=== PATIENT | female | born 1960 | race Caucasian/White ===

== ENCOUNTER → 2020-08-02 09:33 | Outpatient (CLI) | payer BC, SELFPAY ==
--- NOTE | 2020-08-02 09:33 | MM_ITS ---
PROCEDURE: MM DIG SCREENING MAMM BI W/CAD Digital Breast Tomosynthesis Included CLINICAL INDICATION: screening There has been a previous lumpectomy right breast for malignancy followed by radiation therapy. There is a history of breast cancer patient's mother diagnosed at age 43 COMPARISON: MG DMSB DIGITAL MAMM-SCREEN BILATERAL from 12/09/2010 MG DMDXUAVL DIG MAMM-DX UNI ADD VIEWS-LT from 12/23/2010 MG WI MAMMO, DIGITAL SCREENING (B) from 06/02/2016 TECHNIQUE: Standard CC and MLO images and 3D Tomosynthesis was obtained. R2 CAD reviewed. FINDINGS: Prominent postlumpectomy scarring is seen upper central portion right breast. There are surgical clips noted at the lumpectomy site and in addition there are surgical clips in the right axilla from likely axillary node dissection. There is no new or suspicious lesion in either breast and no suspicious microcalcifications. IMPRESSION: Stable exam with prominent postlumpectomy scarring right breast BI-RAD Category: 2 Benign Finding(s) FOLLOW-UP: 1YR 1 Year Follow-up (A letter has been sent to the patient regarding results of the study.) Dictated by: Dr. Craig Walter MD 08/13/2020 18:05 Dr. Craig Walter MD in [place] 08/13/2020 18:05
== END ==
PROVIDERS: PCP Emergency Medicine; Visit Provider Emergency Medicine
DX: Z12.31 Encounter for screening mammogram for malignant neoplasm of breast (principal)
CPT/HCPCS: 77063; 77067

== ENCOUNTER → 2023-07-13 15:43 | Outpatient (CLI) | payer BC, SELFPAY ==
--- NOTE | 2023-07-13 15:50 | MM_ITS ---
PROCEDURE INFORMATION: Exam: MG Bilateral Screening 3D Mammography Exam date and time: 07/13/2023 3:41 PM Age: 63 years old Clinical indication: Screening examination. History of right breast cancer TECHNIQUE: Imaging protocol: Bilateral Screening tomosynthesis and 2D mammography including computer-aided detection (CAD) when performed. COMPARISON: 1. MG MM DIG SCREENING MAMM BI W/CAD 08/02/2020 9:47 AM 2. MG VT MAMMO, DIGITAL SCREENING (B) 06/02/2016 9:20 AM FINDINGS: MAMMOGRAPHY: Breast composition: There are scattered areas of fibroglandular density. Mass: None. Architectural distortion: Stable post operative architectural distortion in the right upper breast with overlying skin retraction due to prior lumpectomy for carcinoma. Calcifications: No suspicious calcifications. Asymmetric density: None. Skin thickening: None. Axillary adenopathy: None. IMPRESSION: No mammographic evidence of malignancy. Annual screening is recommended unless otherwise clinically indicated. ASSESSMENT: BI-RADS Category 2: Benign
== END ==
PROVIDERS: PCP Internal Medicine; Visit Provider Internal Medicine
DX: Z12.31 Encounter for screening mammogram for malignant neoplasm of breast (principal)
CPT/HCPCS: 77063; 77067

== ENCOUNTER 2024-05-09 20:03 | Emergency (ER) | payer BC, SELFPAY ==
[2024-05-09 20:03] VITALS: BP 177/92; PULSE 110; RESP 20; TEMP 36.4; O2SAT 96; BMI 35.2
--- NOTE | 2024-05-09 20:10 | ED_ITS ---
<Statement entered by Parag Rubio MD - 05/09/24 22:18> I was consulted by the SALVADOR, and we discussed the complexity of the problems being addressed. I approved the treatment and management plan for this patient's care in the emergency department, thus performing a substantive portion of the medical decision making. Parag Rubio MD, GIORGI, FACEP Discharge Plan Disposition Patient Disposition: Home, Self-Care Condition: Fair Prescriptions Prescriptions: No Action risperidone [Risperdal] 1 mg tablet 1 mg PO BID Qty: 60 0RF Referrals Follow up/Referrals: Gerald Trimble APRN [Primary Care Provider] - See instructions Activity Restrictions/Add. Instructions Additional Instructions/Restrictions: Ice face for the next 24 hours. May take Tylenol and ibuprofen for pain and swelling. Return to the ED for any further problems or concerns. Clinical Impressions Clinical Impression: Abrasion of face Instructions Patient Instructions: How to Prevent Falls Print Language Print Language: Khmer Discharge ED Provider: Parag Rubio General Adult HPI General Chief complaint: Fall Stated complaint: fall Time Seen by Provider: 05/09/24 20:06 History of Present Illness HPI narrative: This is a 64-year-old female who was playing with a ball and fell face first onto the concrete. She complains of only pain in her face. She is not on blood thinners. She has no other complaints of pain including no neck pain. No other pain. She has no extremity pain no lower body pain no chest pain or shortness of breath no other injuries. Related Data Previous Rx's ?Medication ?Instructions ?Recorded risperidone 1 mg tablet (Risperdal) 1 mg PO BID #60 tabs 06/24/18 Allergies Allergy/AdvReac Type Severity Reaction Status Date / Time Penicillins Allergy Mild rash Verified 06/12/18 13:38 Sulfa (Sulfonamide AdvReac Mild rash Verified 06/12/18 13:38 Antibiotics) Ampicillin Allergy Mild rash Uncoded 06/12/18 13:38 Codeine Allergy Mild rash Uncoded 06/12/18 13:38 Tetracycline Allergy Mild rash Uncoded 06/12/18 13:38 [facility] Disclaimer: The information contained in this section may have been updated after the patient was seen, as this information can be updated by other users. Social History Smoking Status: Unknown if ever smoked alcohol intake: never substance use type: denies use current occupational status: disabled (She has been getting SSI since she was 17 years old. It is suspended right now related to change of address and they did not know where to send her stuff when she left [facility].) Travel in the last 8 weeks: None number of children: 2 Other Medical History Have you received the Flu Vaccine for this season: No Have you received the Pneumonia Vaccine: No ROS Obtained: Yes Systems reviewed as appropriate & no additional complaints except as documented Constitutional Constitutional: Reports as per HPI Physical Exam General General appearance: alert Head Head exam: normocephalic and other (Facial abrasions on forehead and cheeks, nasal abrasion) Eye Eye exam: Present normal appearance, PERRL and EOMI ENT ENT exam: Present normal exam, normal oropharynx and mucous membranes moist Neck Neck exam: Present normal inspection, full ROM and trachea midline Chest Chest inspection: Present normal inspection Respiratory Respiratory exam: Present normal lung sounds bilaterally Cardiovascular Cardiovascular exam: Present regular rate, normal rhythm, normal heart sounds, +S1 and +S2 Extremities Exam Extremities exam: Present normal inspection, full ROM and normal capillary refill Back Exam Back exam: Present normal inspection Neurological Exam Neurological exam: Present alert and oriented X3 Skin Skin exam: Present warm and other (Abrasions to face and nose) Medical Decision Making Medical Records Screening: Per USPSTF and CDC recommendations, given the prevalence of disease in our region, it is our hospital?s policy to screen for HIV and viral Hepatitis for all patients aged 18 and over and those with ongoing risk factors. Jc Inquiry Pt receiving controlled substance: No Jc was queried for this patient: No Vital Signs: 05/09/24 20:03 05/09/24 21:19 Temperature 97.5 F L 98.3 F Temperature Source Oral Oral Pulse Rate 86 Pulse Rate [Right Brachial] 110 H Respiratory Rate 20 16 Blood Pressure 150/87 H Blood Pressure [Right Arm] 177/92 H Blood Pressure Mean [Right Arm] 120 02 Sat by Pulse Oximetry 96 Oxygen Delivery Method Room Air Room Air Orders (Tests/Meds): ORDERS Category Date Time Status CT facial bones wo con Stat Cat Scan 05/09/24 20:10 Completed Medical Decision Narrative: Insert review patient is a [id number] female presenting to the emergency department for evaluation of facial abrasion after a trip and fall. patient is hemodynamically stable and nontoxic-appearing upon arrival, afebrile. Differential diagnosis includes facial abrasions versus facial fractures. Workup will be conducted with CT of facial bones to rule out fractures. Initial review of the CT scan shows nothing acute. We are still awaiting the formal review. Formal read shows nothing acute. Patient's been updated and is safe for discharge home. She has been instructed to ice face. Critical Care Critical Care Time Critical Care Time: No
--- NOTE | 2024-05-09 20:10 | CT_ITS ---
PROCEDURE INFORMATION: Exam: CT Maxillofacial Without Contrast Exam date and time: 05/09/2024 8:22 PM Age: 64 years old Clinical indication: Injury or trauma; Fall; Blunt trauma (contusions or hematomas); Nose TECHNIQUE: Imaging protocol: Computed tomography of the face without contrast. Radiation optimization: All CT scans at this facility use at least one of these dose optimization techniques: automated exposure control; mA and/or kV adjustment per patient size (includes targeted exams where dose is matched to clinical indication); or iterative reconstruction. COMPARISON: No relevant prior studies available. FINDINGS: Orbital cavities: Orbits are normal. Globes are unremarkable. Paranasal sinuses: No air-fluid levels. Bones: Degenerative changes of the TMJs. No fracture or dislocation. Soft tissues: Unremarkable. IMPRESSION: No acute findings.
[2024-05-09 21:19] VITALS: BP 150/87; PULSE 86; RESP 16; TEMP 36.8; O2SAT 98
--- NOTE | 2024-05-09 21:23 | PC.NURSE ---
Called [facility] and they stated they would send someone for transport
== END 2024-05-09 21:35 | disposition home or self-care (01) ==
PROVIDERS: Emergency Provider Student in an Organized Health Care Education/Training Program; PCP Nurse Practitioner Acute Care
DX: S00.81XA Abrasion of other part of head, initial encounter (principal); W19.XXXA Unspecified fall, initial encounter
CPT/HCPCS: 70486; 99284

== ENCOUNTER 2025-05-29 16:44 | Emergency (ER) | payer OTHER, SELFPAY ==
[2025-05-29] MEDS: EPINEPHrine 0.1 MG/ML 10ML SYRINGE (CRASH CART) 1 MG IV ×6 (16:42→16:56)
[2025-05-29] MEDS: AMIODARONE HCL 150MG/3ML VIAL 300 MG IV (16:44)
[2025-05-29] MEDS: CALCIUM CHLORIDE 1GM/10ML SYRINGE (CRASH CART) 2 GM IVP (16:53)
[2025-05-29] MEDS: SODIUM BICARB 8.4% 50ML SYRINGE (CRASH CART) 50 MEQ IV (16:54)
--- NOTE | 2025-05-29 17:01 | PC.NURSE ---
Supriya Brody called from the [employer] public [employer] stating the pt is a guardian of the state. Alexandria Camilo is her guardian but is not available so we are instructed to call the monotype operator number at [phone] about the pts status.
[2025-05-29 17:02] LABS: Lactate Venous 18.6 mmol/L (0.4-2.0); VBG HCO3 9.6 mmol/L (23-30); VBG PCO2 50.7 mmol/L (35-51); VBG PH 6.90 mmol/L (7.31-7.41); VBG PO2 67.5 mmol/L (28-40)
--- NOTE | 2025-05-29 17:09 | HMH.EDGENADL ---
Discharge Plan Disposition Patient Disposition: Clinical Impressions Clinical Impression: Acute hypoxemic respiratory failure, Cardiac arrest, Acute hyperkalemia, Acidosis, lactic Discharge ED Provider: Sonia Dudley Adult HPI General Stated complaint: CODE BLUE Time Seen by Provider: 05/29/25 16:48 History of Present Illness HPI narrative: Patient is a 65-year-old female with no significant past medical history who presented to the emergency department from [facility] as a CODE BLUE. Per EMS, patient's last known normal was an hour prior to arrival. 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 They are unsure the length of. That she was on the ground patient did not have a witnessed fall. On arrival by EMS, patient was pulseless. Compressions were initiated. Patient was found to be in V-fib x 2 and patient was shocked twice. Patient was given 1 dose of epinephrine and route. IO was placed and an LMA was placed. On arrival, patient was unresponsive ACLS protocol was initiated. Related Data Previous Rx's ?Medication ?Instructions ?Recorded risperidone 1 mg tablet (Risperdal) 1 mg PO BID #60 tabs 06/24/18 Allergies Allergy/AdvReac Type Severity Reaction Status Date / Time Penicillins Allergy Mild rash Verified 06/12/18 13:38 Sulfa (Sulfonamide AdvReac Mild rash Verified 06/12/18 13:38 Antibiotics) Ampicillin Allergy Mild rash Uncoded 06/12/18 13:38 Codeine Allergy Mild rash Uncoded 06/12/18 13:38 Tetracycline Allergy Mild rash Uncoded 06/12/18 13:38 [facility] Disclaimer: The information contained in this section may have been updated after the patient was seen, as this information can be updated by other users. Social History (Updated 05/09/24 @ 21:43 by Maryanne Ferguson (ED), TANNERY GUMMER) Smoking Status: Unknown if ever smoked alcohol intake: never substance use type: denies use current occupational status: disabled (She has been getting SSI since she was 17 years old. It is suspended right now related to change of address and they did not know where to send her stuff when she left [facility].) Travel in the last 8 weeks?: None number of children: 2 Have you lived/traveled outside US in past 30 days?: No Contact w/someone who lives/traveled outside US past 30 days?: No Exposure to someone with infectious disease in past 14 days?: No Do you have a fever (greater than 100.4 F or 38 C)?: No Have you tested positive for COVID-19?: No Exposed to someone with COVID-19 in past 14 days?: No Do you have a sore throat?: No Do you have a cough?: No Do you have any weakness?: No Do you have any diarrhea?: No Are you experiencing any unusual bleeding?: No Do you have any muscle aches/pain?: No Do you have any abdominal pain?: No Are you experiencing loss of taste or smell?: No Other Medical History Have you received the Flu Vaccine for this season: No Have you received the Pneumonia Vaccine: No ROS Obtained: Yes unobtainable due to mental status Physical Exam General General appearance: other (Unresponsive) Head Head exam: atraumatic Eye Eye exam: Present other (pupils 3 and minimally reactive) Respiratory Respiratory exam: Present other (bilateral breath sounds present with bagging) Cardiovascular Cardiovascular exam: Present other (asystole) Abdominal Exam Abdominal exam: Absent distention Extremities Exam Extremities exam: Present other (Cool to the touch) Neurological Exam Neurological exam: Present other (Unresponsive) Medical Decision Making Medical Records Screening: Per USPSTF and CDC recommendations, given the prevalence of disease in our region, it is our hospital?s policy to screen for HIV and viral Hepatitis for all patients aged 18 and over and those with ongoing risk factors. Jc Inquiry Pt receiving controlled substance: No Lab Data Lab results reviewed: Yes I reviewed the patient's lab results. Lab Results 05/29/25 16:50: VBG pH 6.90 L, VBG pCO2 50.7, VBG pO2 67.5 H, VBG HCO3 9.6 L, VBG Total CO2 11.2 L, VBG O2 Saturation 77.2 H, VBG Base Excess -23.3 L, VBG Lactic Acid 18.6 H Orders (Tests/Meds): ORDERS Category Date Time Status VBG [Venous Blood Gas] Stat RT 05/29/25 16:50 Completed Medical Decision Narrative: Patient is a 65-year-old female with no significant past medical history who presented to the emergency department as a CODE BLUE. Patient arrived via EMS after being found on the ground at [facility]. Unknown downtime but was seen normal 1 hour prior to arrival. EMS initiated CPR, patient was given 1 dose of epinephrine. Patient was shocked twice for V-fib. On arrival, patient remained in PEA, patient had an LMA in place as well as an IO. CPR and ACLS protocol was continued. Patient had bilateral breath sounds with bagging, bagging was not difficult. Epinephrine was given on arrival given last dose was more than 5 minutes prior to arrival. Given the patient was shocked twice for V-fib, patient was given 300 of amiodarone. LMA was replaced for definitive airway. Patient had significant secretions in the airway. Patient had good color change, had bilateral breath sounds. Patient had appropriate capnography. Patient was given multiple rounds of epinephrine patient remained in PEA. VBG was obtained which showed significant acidosis of 6.9, bicarb of 9.6, potassium of 6.2, lactate of 18. Patient was given 2 g of calcium 1 amp of bicarb. 2 more rounds of compressions were done after further interventions and patient continued to be in PEA. Time of was called at 1702. Is a guardian of the state, guardian was contacted as well as patient's living facility. Patient has no other family to be contacted. Procedures Intubation Mallampati Score:: Class I Time out performed: Yes sedative: none Laryngoscope: Mendoza ET Tube Size: 7.5 ET Tube Uncuffed: Yes Tube Secured Depth (cm): 22 Tube Secured Location: lips Tube Placement Confirmation: visualized tube passing through cords and equal breath sounds bilaterally Patient Tolerated Procedure: well Intubation Complications: none Critical Care Critical Care Time Critical Care Time: Yes Attestation: On 05/29/25, the high probability of a clinically significant, sudden or life threatening deterioration of the following system(s) required my full and direct attention, intervention and personal management. The time I documented below is in addition to time spent performing reported procedures but includes the following listed in this critical care notation. Total Time Total Critical Care Time: 35
--- NOTE | 2025-05-29 17:17 | PC.NURSE ---
Contacted [facility] and got disconnected. Recontacted [facility] and spoke with Chari Keyes. Case # [id number]
--- NOTE | 2025-05-29 17:17 | PC.NURSE ---
call made to [facility] dispatch to get bianca of [facility] for ER
--- NOTE | 2025-05-29 17:22 | PC.NURSE ---
PT BROUGHT IN VIA EMS FROM [facility], EMS STATES THEY HAVE BEEN WORKING HER FOR THE LAST 5 MINUTES PRIOR TO ARRIVAL TO [facility], STAFF AT [facility] REPORTED PT WAS LAST SEEN AT [address] AND FOUND IN THE FLOOR IN HER ROOM AROUND 1620, PT WAS SHOCKED TWICE BY EMS PRIOR TO ARRIVAL AND THEY ADMINISTERED 1MG EPI IV, PT WAS NOTED TO BE IN V FIB ON MONITOR BY EMS, IO IN LLE PLACED BY EMS PRIOR TO ARRIVAL 16:38 PT ARRIVED TO THE ER, PLACED IN ROOM 4, CODE STARTED 16:39 1MG IV EPINEPHRINE ADMINISTERED 16:40 CPR INITIATED 16:42 CPR STOPPED, PULSE CHECK 16:43 CPR RESUMED 16:43 1MG EPINEPHRINE IV ADMINISTERED 16:44 300MG IV AMIO ADMINISTERED, FSBS OBTAINED 256 16:[address] SORTO, ET TUBE NOTED AT 20 AT THE LIP, COLOR CHANGE NOTED 16:45 CPR STOPPED, PULSE CHECK PEA 16:45 CPR RESUMED 16:46 1MG EPINEPHRINE IV ADMINISTERED 16:47 CPR STOPPED,. PULSE CHECK PEA 16:47 CPR RESUMED 16:48 22G IV PLACED IN L HAND BY A RASHEED RN 16:49 CPR STOPPED, PULSE CHECK PEA 16:49 1MG EPINEPHRINE IV ADMINISTERED 16:49 CPR RESUMED 16:51 CPR STOPPED, PULSE CHECK PEA 16:52 CPR RESUMED 16:52 1MG EPINEPHRINE IV ADMINISTERED 16:53 2 GRAMS OF CALCIUM IV GIVEN 16:54 1 AMP BICARB GIVEN IV 16:54 CPR STOPPED, PULSE CHECK PEA 16:54 CPR RESUMED 16:56 1MG EPINEPHINE IV ADMINISTERED 16:56 CPR STOPPED, PULSE CHECK PEA 16:57 CPR RESUMED 16:59 CPR STOPPED, PULSE CHECK PEA 17:00 CPR RESUMED 17:02 CPR STOPPED, PULSE CHECK PEA 17:02 DR SORTO PRONOUNCED TIME OF
--- NOTE | 2025-05-29 17:25 | PC.NURSE ---
All medication given by CHANDU Baker.
--- NOTE | 2025-05-29 17:34 | PC.NURSE ---
I called the license registration examiner guardianship phone number and spoke with Kelly. I notified her the pt has . She states she will notify the supervisor mails of the region and have them return my call.
--- NOTE | 2025-05-29 18:04 | PC.NURSE ---
Coronor Eduin Young (#[phone]) requested when the [facility] and guardian call back that we have them call Eduin.
--- NOTE | 2025-05-29 18:14 | PC.NURSE ---
Supriya Brody-manufacturing supervisor for the pts dot returned our call. She states they do not have any family on record for the pt. I requested she call Eduin-the coronor and provided his information.
--- NOTE | 2025-05-29 18:48 | PC.NURSE ---
Addendum entered by Sarah Lynne RN 05/29/25 18:53: Time was 18:03 not 18:53. Original Note: Spoke with Chari Keyes at [facility]. Notified Chari that the case has been turned over to a outdoor studies director case at this time. Gave Chari the outdoor studies director's contact information. Pot [employer]: Eduin Young [phone] Notified [employer] that I had spoke with [facility].
[2025-05-29 19:05] VITALS: BMI 33.3
[2025-05-29 21:01] LABS: Reflex Lactic Add Lactic Reflex
--- NOTE | 2025-05-30 08:39 | PC.NURSE ---
sarkis meehan state guardian called to get preliminary cause of and name of physician that called time of .
== END 2025-05-29 18:20 | disposition expired ==
PROVIDERS: Emergency Provider Student in an Organized Health Care Education/Training Program
DX: I46.9 Cardiac arrest, cause unspecified (principal); J96.01 Acute respiratory failure with hypoxia; E87.5 Hyperkalemia; R74.02 Elevation of levels of lactic acid dehydrogenase [LDH]; E87.29 Other acidosis
CPT/HCPCS: 31500; 82803; 92950; 96374; 96375; 99285; 99291; C1751; J0169; J0282